=== PATIENT | male | born 1975 | race Caucasian/White ===

== ENCOUNTER → 2016-08-21 | Outpatient (REF) | payer OTHER | LOC: M LAB REF 14:59 | PROVIDERS: ATTEND Physician Assistant Medical | DX: J02.0 Streptococcal pharyngitis (principal) ==

== ENCOUNTER → 2017-06-16 | Outpatient (CLI) | payer OTHER | LOC: M CLY 15:12 | DX: R05 Cough (principal) | CPT/HCPCS: 71020 ==

== ENCOUNTER 2021-10-01 06:57 | Day surgery (SDC) | payer BC ==
[~2021-10-01] VITALS: Ht 175.3 cm; Wt 91.2 kg
[~2021-10-01 06:57] MED LIST: IMMU1CHW PO; NS 1,000 ML IV ONE; OMEP40CA5 PO; VITMTA PO
[2021-10-01] MEDS ORDERED: LIDOCAINE 2% 100MG/5ML SDV (FOR ANES.) As Ordered ONE (08:26)
[2021-10-01] MEDS ORDERED: propofoL 200 MG/20 ML VIAL As Ordered ONE (08:26)
[2021-10-01 09:00] VITALS: BP 126/63
== END 2021-10-01 09:14 | disposition home or self-care (01) ==
LOC: M OPP 06:57
PROVIDERS: ATTEND Internal Medicine Gastroenterology
DX: Z12.11 Encounter for screening for malignant neoplasm of colon (principal); K64.0 First degree hemorrhoids; K22.89 Other specified disease of esophagus; K31.89 Other diseases of stomach and duodenum; K44.9 Diaphragmatic hernia without obstruction or gangrene; R12 Heartburn

== ENCOUNTER → 2024-08-17 | Outpatient (REF) | payer BC ==
[~2024-08-17] MED LIST changes: -NS 1,000 ML IV ONE
[2024-08-17 19:10] LABS: ALBUMIN 4.2 G/DL (3.2-5.2); ALKALINE PHOSPHATASE 103 U/L (40-129); ALT/SGPT 49 U/L (7.0-40); AST/SGOT 25 U/L (<34); BILIRUBIN,TOTAL 0.5 MG/DL (0.3-1.2); BLOOD UREA NITROGEN 19 MG/DL (9-23); CALCIUM LEVEL 9.1 MG/DL (8.5-10.1); CARBON DIOXIDE LEVEL 27 MMOL/L (20-31); CHLORIDE LEVEL 101 MMOL/L (98-107); CHOLESTEROL LEVEL 205 MG/DL (<200); CHOLESTEROL RISK RATIO 4.98 (<5); CREATININE FOR GFR 0.96 MG/DL (0.70-1.30); GLOMERULAR FILTRATION RATE > 60.0 (>60); GLUCOSE, FASTING 86 MG/DL (60-100); HDL CHOLESTEROL 41.1 MG/DL (>40); LDL CHOLESTEROL 105.9 MG/DL (<100); NON-HDL-C 163.9 MG/DL; SODIUM LEVEL 137 MMOL/L (136-145); TOTAL PROTEIN 7.5 G/DL (5.7-8.2); TRIGLYCERIDES LEVEL 290 MG/DL (<150)
[2024-08-17 20:02] LABS: HEMOGLOBIN A1c 5.4 % (4.0-6.0)
== END ==
LOC: M SFHCCLAY 13:22
PROVIDERS: ATTEND Physician Assistant
DX: K21.9 Gastro-esophageal reflux disease without esophagitis (principal)

== ENCOUNTER → 2025-01-01 | Outpatient (REF) | payer BC ==
[2025-01-01 18:58] LABS: BASO # 0.0 10^3/uL (0.0-0.2); BASO % 0.5 % (0.0-1.0); EOS # 0.0 10^3/uL (0.0-0.5); EOS % 0.5 % (0.0-3.0); LYMPH # 3.2 10^3/uL (1.5-5.0); LYMPH % 37.8 % (24.0-44.0); MONO # 0.6 10^3/uL (0.0-0.8); MONO % 6.6 % (2.0-8.0); NEUTROPHILS # 4.6 10^3/uL (1.5-8.5); NEUTROPHILS % 54.2 % (36.0-66.0); PLATELET COUNT, AUTOMATED 377 10^3/uL (150-450)
[2025-01-01 19:16] LABS: ALT/SGPT 38 U/L (7.0-40); AST/SGOT 22 U/L (<34); CALCIUM LEVEL 9.0 MG/DL (8.5-10.1); CARBON DIOXIDE LEVEL 29 MMOL/L (20-31); CHLORIDE LEVEL 102 MMOL/L (98-107); CREATININE FOR GFR 1.01 MG/DL (0.70-1.30); GLOMERULAR FILTRATION RATE > 90.0 (>60); MAGNESIUM LEVEL 2.1 MG/DL (1.8-2.4); POTASSIUM SERUM 4.3 MMOL/L (3.5-5.1); SODIUM LEVEL 140 MMOL/L (136-145)
[2025-01-01 19:18] LABS: FREE T4 1.24 NG/DL (0.89-1.76)
== END ==
LOC: M SFHCCLAY 12:32
PROVIDERS: ATTEND Nurse Practitioner Family
DX: K21.9 Gastro-esophageal reflux disease without esophagitis (principal); R74.8 Abnormal levels of other serum enzymes; E78.2 Mixed hyperlipidemia; R00.2 Palpitations